=== PATIENT | female | born 1985 | race Caucasian/White ===

== ENCOUNTER 2019-07-30 18:00 | Inpatient (IN) | payer OTHER ==
[2019-07-30] MEDS ORDERED: Lactated Ringers 1000 ML Bag* 1,000 ML IV ONE (19:41)
[2019-07-30] MEDS ORDERED: Buffered Lidocaine 1% SYRIN* 1 ML/SYRINGE INTRADERM ONE (19:41)
--- NOTE | 2019-07-30 19:52 | HP ---
General Information - Reason for Visit Contractions this afternoon/em, increasing in intensity - General Information Maternal Age: 33 Grav: 4 Para: 1 SAB: 0 IEA: 2 Estimated Due Date: 08/01/19 Determined By: LMP Maternal Blood Type and Rh: O Positive - Results this Serology/RPR Result: Non-Reactive Rubella Result: Immune HBsAg Result: Negative HIV Result: Negative GBS Culture Result: Negative Past Medical History Delivery History: See Records - SVB 11/2014 Pertinent Past Medical History: See Records - No current problems Pertinent Past Surgical History: See Records Past Surgical History Comment: ORIF Left tibia/fibula, 2008 Right knee arthroscopy 2004 Pertinent Family History: See Records Family History Comment: Mat grandmother--breast cancer - Antepartal Records Antepartal Records: Reviewed, Uncomplicated Review of Systems Constitutional: Uncomfortable CV Complaint: No Respiratory: Shortness of Breath: No Gastrointestinal: Nausea, Soft Stool Genitourinary: Leaking Fluid, No Dysuria, Spotting Musculoskeletal: Contractions Neurological: No Headache, No Visual Changes Movement: Normal Exam Allergies/Adverse Reactions: Allergies No Known Allergies Allergy (Verified 07/30/19 02:23) BP 125/74 T 98.4 HR 55 RR 16 Lab Values - Entire Visit: Laboratory Tests 07/30/19 18:30 Vag Amniotic Fld Detect Positive - Measurements Height: 5 ft 8 in Weight: 158 lb Weight in lbs: [phone] Body Mass Index (BMI): 24.0 Pre- Weight: 134 lb Weight Gained This : 24 lbs and 0 ozs - Exam Breast: Breast Exam Deferred CVA: No CVA Tenderness Extremities: No Edema Heart: Normal Rhythm/Heart Sounds HEENT: No Significant Findings Lungs: Clear Bilaterally Rectal: Rectal Exam Deferred Reflexes: DTR 2+, - - no clonus Thyroid: - - WNL at entry to [facility] - Abdominal Exam Abdomen Exam: Non-Tender, Fundal Height Consistent with Dates - Ultrasound/Biophysical Profile Ultrasound Status: Not Done Targeted Exam Findings Estimated Weight: 6.5-7lb Cervical Exam: 5cm - Exam by RN Effacement: 100% Station: -1 Presenting Part: Vertex Membrane Status: Leaking Amniotic Fluid Evaluation: Positive ROM Plus Bleeding/Discharge: Bloody Show EFM Findings - External Monitor Findings Baseline Heart Rate: 135 External Monitor Findings: Accelerations Present, No Pattern of Variable or Late Decelerations, Variability Moderate Contractions: Irregular, Moderate Contraction Frequency: Difficult to trace, appear to be q 4-6 min Assessment/Plan - Assessment IUP @ 39+5 weeks gestation in active labor. Spontaneous rupture of membranes. No evidence acidemia. - Plan Plan: Admit - Anticipate Vaginal Delivery - Date/Time of Admission Date of Admission: 07/30/19 Time of Admission: 18:38
[2019-07-30] MEDS ORDERED: Lactated Ringers 1000 ML Bag* 1,000 ML IV SCH (20:00)
--- NOTE | 2019-07-30 21:04 | PN ---
Progress Note - Progress Note Date of Service: 07/30/19 Note: S: Patient tearful, feeling rectal pressure with contractions. Would like VE. O: VE 7-8cm/100/0 FHT 130 UCs Q 3-5 min A: IUP in active labor No evidence acidemia Membranes ruptured P: PARQ discussion nitrous, patient in agreement. May want to get back in tub if she doesn't like it.
--- NOTE | 2019-07-31 00:07 | PN ---
Progress Note - Progress Note Date of Service: 07/31/19 Note: S: Patient desires check, has had some stronger pressure with contractions. O: 9.5cm/100/0 FHT 130s via doppler UCs somewhat spaced out, q 3-6 min VSS, afebrile A: IUP in active labor Doubt acidemia P: Patient to try bath for comfort. Encouraged trying to let go of worries about speed of labor or other people's comfort as she had expressed these thoughts. Anticipate progression to urge to push and SVB.
[2019-07-31] MEDS ORDERED: Witch Hazel PAD* JAR ONE (05:14)
[2019-07-31] MEDS ORDERED: Dibucaine 1% 28.35 GM TUBE ONE (05:14)
[2019-07-31] MEDS ORDERED: Dibucaine 1% 28.35 GM TUBE PR PRN (05:31)
[2019-07-31] MEDS ORDERED: Witch Hazel PAD* JAR TOPICAL PRN (05:31)
[2019-07-31] MEDS ORDERED: Glycerin ADULT SUPP PR PRN (05:31)
[2019-07-31] MEDS: Ibuprofen TAB* 600 MG PO PRN ×3 (05:58→17:57)
[2019-07-31] MEDS ORDERED: Lidocaine 1% INJ* 10 MG/ML 30 ML SDV ONE (06:10)
[2019-07-31 07:06] LABS: Urine Benzodiazepine Screen None Detected (None Detect); Urine Opiates Screen None Detected (None Detect)
[2019-07-31] MEDS: Docusate CAP* 100 MG PO SCH ×3 (09:07→20:08)
[2019-07-31] MEDS: Acetaminophen TAB* 325 MG PO PRN ×2 (16:07→20:08)
--- NOTE | 2019-07-31 16:08 | PROCNOTE ---
[facility] OB: Delivery Note - Delivery A Date of : 07/31/19 Time of : 04:53 [place] Sex: Female Weight at : 6 lb 15 oz Score 1 Minute: 9 Score 5 Minutes: 9 Gestational Age in Weeks and Days at Delivery: 39 Weeks and 6 Days Delivery Method: Spontaneous Vaginal Labor: Spontaneous Did Patient attempt ?: N/A, No Previous Amniotic Fluid: Clear Estimated Blood Loss: 300 Anesthesia/Analgesia: Nitrous-Labor Delivered By: Mary Kate Colindres - Nursery Level of Nursery: Regular/Bedside - Perineum Perineal Injury: Perineal Laceration, 1st Degree Perineal Injury Comment: up to bathroom, taught self care and use of torrie bottle. Perineal Repair: By Delivering Practioner - Events Delivery Events of Note: None Apply - Additional Delivery Notes Additional Delivery Notes: Patient admitted in active labor with halting progress to complete and urge to push. Patient expressed self-consciousness which seemed to slow progress. Some nipple stimulation with breast pump appeared to help and finally had regular ctx with urge to push. Length of active labor 7'01", pushed 26 min. Baby born direct OA with shoulders following immediately with maternal efforts. Delivered to maternal abdomen with spontaneous cry, HR >110. Cord doubly clamped and cut by CNM once pulsations ceased. Placenta delivered with gentle cord traction, intact-appearing with 3VC. Fundus firm to massage. Repair as above. Mother and baby stable.
[2019-08-01] MEDS: Ibuprofen TAB* 600 MG PO PRN ×2 (00:27→07:02)
[2019-08-01] MEDS: Acetaminophen TAB* 325 MG PO PRN (03:57)
[2019-08-01 07:59] LABS: ABS Basophils 0.1 10^3/ul (0-0.2); ABS Eosinophils 0.1 10^3/ul (0-0.6); ABS Lymphocytes 2.6 10^3/ul (1.0-4.8); ABS Monocytes 0.5 10^3/ul (0-0.8); ABS Neutrophils 5.4 10^3/ul (1.5-7.7); Eosinophil % 0.9 %; Hematocrit 29 % (35-47); Lymphocyte % 29.9 %; Mean Corpuscular HGB Conc 35 g/dL (31-36); Mean Corpuscular Hemoglobin 32 pg (27-31); Mean Corpuscular Volume 90 fL (80-97); Mean Platelet Volume 9.6 fL (7.4-10.4); Platelet Count 116 10^3/uL (150-450); Red Blood Count 3.16 10^6 /uL (3.70-4.87); Red Cell Distribution Width 14 % (10-15); White Blood Count 8.6 10^3/uL (3.5-10.8)
[2019-08-01] MEDS: Docusate CAP* 100 MG PO SCH (08:05)
[2019-08-01 08:26] VITALS: BP 105/70
[2019-08-01] MEDS ORDERED: Ferrous Gluconate TAB* 324 MG TAB PO SCH (09:00)
== END 2019-08-01 11:08 | disposition home or self-care (01) | DRG 560 ==
LOC: MCHOBOUT 18:00 → MCHOB 18:38
PROVIDERS: ADMIT Midwife; ATTEND Midwife
PROC: 10E0XZZ Delivery of Products of Conception, External Approach (ICD-10-PCS; principal; 2019-07-31)
PROC: 0HQ9XZZ Repair Perineum Skin, External Approach (ICD-10-PCS; 2019-07-31)
DX: O70.0 First degree perineal laceration during delivery (principal); Z37.0 Single live birth; Z3A.39 39 weeks gestation of pregnancy
CPT/HCPCS: 36415; 80307; 84112; 85025; A9270-GY; G0480